=== PATIENT | female | born 1965 | race African-American/Black ===

== ENCOUNTER 2023-10-09 16:45 | Inpatient (IN) | payer MEDICARE ==
[~2023-10-09] VITALS: Ht 162.6 cm; Wt 88.0 kg
[2023-10-09] MEDS ORDERED: bp med (16:57)
[2023-10-09] MEDS ORDERED: ARIP10TA9 PO (16:57)
[2023-10-09 17:08] LABS: BASOPHILS # (AUTO) 0.1 K/UL (0.0-0.2); BASOPHILS % (AUTO) 0.8 % (0.0-2.0); EOSINOPHILS # (AUTO) 0.3 K/uL (0.0-0.7); EOSINOPHILS % (AUTO) 4.5 % (0.0-7.0); HEMATOCRIT 38.5 % (31.2-41.9); HEMOGLOBIN 12.6 g/dL (10.9-14.3); LYMPHOCYTES # (AUTO) 2.4 K/uL (0.8-4.8); LYMPHOCYTES % (AUTO) 35.6 % (20.5-51.5); MEAN CORPUSCULAR HEMOGLOBIN 29.1 uug (24.7-32.8); MEAN CORPUSCULAR HGB CONC 33 g/dL (32.3-35.6); MONOCYTES # (AUTO) 0.3 K/uL (0.1-1.30); NEUTROPHILS # (AUTO) 3.7 K/uL (1.8-8.9); NEUTROPHILS % (AUTO) 55.1 % (38.5-71.5); PLATELET COUNT (AUTO) 348 K/uL (179-408); RED BLOOD CELL COUNT(AUTO) 4.32 MIL/uL (3.63-4.92); RED CELL DISTRIBUTION WIDTH 14.6 % (12.3-17.7); WHITE BLOOD COUNT (AUTO) 6.7 K/uL (3.8-11.8)
[2023-10-09 17:13] LABS: DIFFERENTIAL COMMENT 1
[2023-10-09 17:14] LABS: CALCIUM 8.7 mg/dL (8.5-10.1); CARBON DIOXIDE 31 mmol/L (21-32); CHLORIDE 104 mmol/L (98-107); CREATININE 0.7 mg/dL (0.6-1.3); GLUCOSE 111 mg/dL (74-106); POTASSIUM 3.4 mmol/L (3.5-5.1); SODIUM SERUM 142 mmol/L (136-145); UREA NITROGEN, BLOOD 10 mg/dL (7-18)
[2023-10-09 17:19] LABS: ETHANOL < 3 MG/DL (0-10)
[2023-10-09 17:20] LABS: ALANINE AMINOTRANSFERASE 27 U/L (14-59); ALBUMIN 2.8 g/dL (3.4-5.0); ALKALINE PHOSPHATASE 123 U/L (50-136); ASPARTATE AMINOTRANSFERASE 16 U/L (15-37); BILIRUBIN,DIRECT 0.1 mg/dL (0.0-0.2); BILIRUBIN,TOTAL 0.2 mg/dL (0.2-1.0); TOTAL PROTEIN, SERUM 6.9 g/dL (6.4-8.2)
[2023-10-09 17:32] LABS: *BILIRUBIN,URIN NEGATIVE (NEGATIVE); *BLOOD, URINE 3+ (NEGATIVE); *CLARITY,URINE CLOUDY (CLEAR); *COLOR,URINE YELLOW (YELLOW); *KETONES,URINE NEGATIVE (NEGATIVE); *PROTEIN,URINE 2+ (NEGATIVE); *UROBILINOGEN,URINE 0.2 E.U./dl (NORMAL); LEUKOCYTE ESTERASE ,URINE 3+ (NEGATIVE); NITRITE, URINE POSITIVE (NEGATIVE); PH,URINE 5.5 (5.0-8.0); UGLUCOSE NEGATIVE (NEGATIVE)
[2023-10-09 17:38] LABS: *AMPHETAMINE, URINE NEGATIVE (NEGATIVE); *BARBITURATE, URINE NEGATIVE (NEGATIVE); *BENZODIAZEPINE, URINE NEGATIVE (NEGATIVE); *CANNABINOID, URINE POSITIVE (NEGATIVE); *COCCAINE, URINE NEGATIVE (NEGATIVE); *OPIATE, URINE NEGATIVE (NEGATIVE); *PHENCYCLIDINE SCREEN,URINE NEGATIVE (NEGATIVE); FENTANYL, URINE NEGATIVE (NEGATIVE)
[2023-10-09] MEDS ORDERED: LORAZEPAM 0.5 MG TABLET ONE (17:43)
[2023-10-09] MEDS: LORAZEPAM 0.5 MG TABLET PO ONE (17:43)
[2023-10-09 17:45] LABS: BACTERIA,URINE MODERATE /HPF (NONE SEEN); WBC,URINE 80-100 /HPF (0-3)
[2023-10-09 17:46] LABS: SQUAMOUS EPITHELIAL CELL,UR FEW /HPF (NONE SEEN)
[2023-10-09] MEDS: CIPROFLOXACIN HCL 250 MG TABLET PO ONE (17:59)
[2023-10-09] MEDS ORDERED: CIPROFLOXACIN HCL 250 MG TABLET ONE (17:59)
[2023-10-10] MEDS ORDERED: MAG HYDROX/AL HYDROX/SIMETH 30 ML LIQUID UDC PO PRN (02:45)
[2023-10-10] MEDS ORDERED: MAGNESIUM HYDROXIDE 30 ML LIQUID UDC PO PRN (02:45)
[2023-10-10 07:23] VITALS: BP 108/66; TEMP 94.2; O2SAT 95
[2023-10-10] MEDS: LORAZEPAM 1 MG TABLET PO PRN (09:24)
[2023-10-10 13:50] VITALS: BP 113/64; TEMP 98.1; O2SAT 96
[2023-10-10 16:39] VITALS: BP 134/92; TEMP 98.2; O2SAT 99
[2023-10-10] MEDS: ACETAMINOPHEN 325 MG TABLET PO PRN (17:01)
[2023-10-10] MEDS: OLANZAPINE 5 MG TABLET PO SCH (17:01)
[2023-10-11 07:59] VITALS: BP 132/93; TEMP 98; O2SAT 99
[2023-10-11 08:18] LABS: ALBUMIN 2.7 g/dL (3.4-5.0); BILIRUBIN,TOTAL 0.3 mg/dL (0.2-1.0); CALCIUM 8.5 mg/dL (8.5-10.1); CREATININE 0.7 mg/dL (0.6-1.3); POTASSIUM 3.8 mmol/L (3.5-5.1); TOTAL PROTEIN, SERUM 6.6 g/dL (6.4-8.2)
[2023-10-11 16:40] VITALS: BP 132/63; TEMP 98; O2SAT 98
[2023-10-11 20:15] VITALS: BP 126/71; TEMP 98.1; O2SAT 96
[2023-10-11] MEDS: DIVALPROEX 250 MG TABLET.DR PO SCH (20:59)
[2023-10-12] MEDS: CEphaleXIN 500 MG CAPSULE PO SCH (00:11)
[2023-10-12] MEDS: LORAZEPAM 0.5 MG TABLET PO PRN (02:26)
[2023-10-12 08:25] VITALS: BP 109/67; TEMP 98; O2SAT 99
[2023-10-12 16:14] VITALS: BP 118/80; TEMP 95; O2SAT 99
[2023-10-12 19:49] VITALS: BP 112/66; TEMP 98.1; O2SAT 96
[2023-10-13 08:27] VITALS: BP 90/56; TEMP 98.2; O2SAT 96
[2023-10-13 15:47] VITALS: BP 124/77; TEMP 98.2; O2SAT 98
[2023-10-13 20:10] VITALS: BP 116/62; TEMP 98.1; O2SAT 96
[2023-10-13] MEDS: ATORVASTATIN 20 MG TABLET PO SCH (21:34)
[2023-10-13] MEDS: NITROFURANTOIN/NITROFURAN MAC 100 MG CAPSULE PO SCH (21:34)
[2023-10-14 07:59] VITALS: BP 108/84; TEMP 98; O2SAT 98
[2023-10-14 16:41] VITALS: BP 118/74; TEMP 98; O2SAT 98
[2023-10-14 20:16] VITALS: BP 129/66; TEMP 98.1; O2SAT 99
[2023-10-14] MEDS: TEMAZEPAM 7.5 MG CAPSULE PO PRN (22:39)
[2023-10-15 08:01] VITALS: BP 109/62; TEMP 98; O2SAT 99
== END 2023-10-15 19:43 | DRG 885 ==
LOC: ER 16:46 → MEDSURG3 10-10 02:08 → GPSOV3 10-10 02:46 → GPS 10-10 16:13
PROVIDERS: ADMIT Psychiatry & Neurology Psychosomatic Medicine; ATTEND Student in an Organized Health Care Education/Training Program
DX: F20.9 Schizophrenia, unspecified (principal); E44.0 Moderate protein-calorie malnutrition; Z59.01 Sheltered homelessness; N39.0 Urinary tract infection, site not specified; B96.89 Other specified bacterial agents as the cause of diseases classified elsewhere; E87.6 Hypokalemia; Z88.2 Allergy status to sulfonamides; Z91.148 Patient's other noncompliance with medication regimen for other reason; I10 Essential (primary) hypertension
CPT/HCPCS: 36415; 84443; 85025; 93005; A4606; A4663; G0480; J3490